=== PATIENT | female | born 1995 | race Caucasian/White ===

== ENCOUNTER 2023-08-13 23:11 | Emergency (ER) | payer OTHER, SELFPAY ==
--- NOTE | 2023-08-13 23:22 | ED_ITS ---
HPI - Nausea/Vomiting/Diarrhea General Chief complaint: Nausea/Vomiting/Diarrhea Stated complaint: n v d Time Seen by Provider: 08/13/23 23:21 Source: patient and family Mode of arrival: EMS Limitations: no limitations History of Present Illness HPI Narrative: Patient otherwise healthy had left over chicken salad last night and earlier today within 4 hours of eating salad patient started having explosive vomiting and diarrhea had more than 10 times in 3 hours was feeling very weak on arrival unable to stand up and walk exhausted no cold symptoms no significant abdominal pain no other family member sick at home no fever or chills stool was watery Related Data Previous Rx's Medication Instructions Recorded loperamide 2 mg tablet (Imodium 2 mg PO Q6H PRN loose stool #10 08/14/23 A-D) tabs ondansetron 4 mg disintegrating 4 mg PO Q6-8H PRN nausea and 08/14/23 tablet vomiting #10 tabs Allergies Allergy/AdvReac Type Severity Reaction Status Date / Time sulfur [From [id number]] Allergy Unknown RASH Verified 08/14/23 00:01 Review of Systems 2 Review of Systems: Yes all other systems are reviewed and are negative Physical Exam 2 Vital Signs: Vital Signs: Last Vital Signs Temp 98.5 F 08/14/23 00:00 Pulse 94 08/14/23 00:00 Resp 16 08/14/23 00:00 BP 98/62 08/14/23 00:00 Pulse Ox 98 08/14/23 00:00 O2 Del Method Room Air 08/14/23 00:00 BMI result Body Mass Index 24.6 Appearance: Alert. Oriented X3. Looks sick Eyes: No pallor or icterus ENT: Pharynx normal. Oral Mucosa dry Neck: Normal inspection. Neck supple. CVS: Normal heart rate and rhythm. Pulses normal. Respiratory: No respiratory distress. Equal air entry bilateral, no wheezing/rales/rhonchi Abdomen: Soft and nontender. Bowel sounds are present, no mass palpable, no CVA tenderness Skin: Skin warm and dry. Normal skin color. Normal skin turgor. Neuro: Oriented X 3. Medications Administered Discontinued Medications Generic Name Dose Route Start Last Admin Trade Name Freq PRN Reason Stop Dose Admin Sodium Chloride 1,000 mls @ 999 mls/hr 08/13/23 23:30 08/14/23 00:34 Ns IV 08/14/23 00:30 Infused .Q1H1M ONE Infusion Sodium Chloride 1,000 mls @ 999 mls/hr 08/13/23 23:30 08/14/23 00:35 Ns IV 08/14/23 00:30 Infused .Q1H1M ONE Infusion Loperamide HCl 4 mg 08/13/23 23:31 08/14/23 00:03 Loperamide Hcl 2 Mg Capsule PO 08/13/23 23:32 4 mg ONCE ONE Administration Ondansetron HCl 4 mg 08/13/23 23:31 08/13/23 23:39 Ondansetron Hcl 4 Mg/2 Ml Vial IVPUSH 08/13/23 23:32 4 mg ONCE ONE Administration Ondansetron HCl 4 mg 08/14/23 01:04 08/14/23 01:07 Ondansetron Hcl 4 Mg/2 Ml Vial IVPUSH 08/14/23 01:05 4 mg ONCE ONE Administration Medical Decision Making Medical Decision Making [facility] Narrative: Patient likely food poisoning from Clostridium perfringens uncooked chicken in salad improved after 2 L of normal saline taking p.o. fluids now will discharge patient home on symptomatic treatment Differential Diagnosis Differential Diagnoses: The differential diagnosis associated with the presentation includes Food poisoning/viral gastroenteritis Lab Data [facility] Lab Attestation statement: I reviewed the patient's lab results. 08/13/23 23:32 08/13/23 23:32 Labs: Lab Results 08/13/23 08/13/23 Range/Units 23:31 23:32 WBC 11.6 H (4.8-10.8) X10*3/uL RBC 5.03 (4.20-5.50) X10*6/uL Hgb 12.7 (12.0-16.0) g/dl Hct 39.5 (37.0-47.0) % MCV 78.5 L (80.0-98.0) fL MCH 25.2 L (27.0-33.0) pg MCHC 32.2 (31.0-35.0) g/dl RDW 12.8 (11.0-16.0) % Plt Count 286 (160-400) X10*3/uL MPV 8.5 L (9.4-12.3) fL Immature Gran % (Auto) 0.2 (0.0-0.4) % Neut % (Auto) 88.8 H (45-73) % Lymph % (Auto) 1.6 L (20-40) % [place] % (Auto) 9.0 (2-11) % Eos % (Auto) 0.2 (0-4) % Baso % (Auto) 0.2 (0-2) % Lymph # (Auto) 0.2 L (1.2-4.9) X10*3/uL [place] # (Auto) 1.0 (0.1-1.2) X10*3/uL Eos # (Auto) 0.0 (0.0-0.4) X10*3/uL Baso # (Auto) 0.0 (0.0-0.2) X10*3/uL Abs Immat Gran (auto) 0.02 (0.00-0.03) X10*3/uL Absolute Neuts (auto) 10.3 H (2.0-8.3) x10*3/uL Absolute Nucleated RBC 0.000 (0.0-0.012) X10*3/uL Nucleated RBC % (auto) 0.0 (0.0-0.2) /100WBC Sodium 137 (135-145) mmol/L Potassium 4.1 (3.3-5.1) mmol/L Chloride 108 (96-108) mmol/L Carbon Dioxide 17 L (22-29) mmol/L Anion Gap 16 (12-20) BUN 17 H (9-16) mg/dL Creatinine 0.76 (0.5-1.4) mg/dL Estim Creat Clear Calc 91.0 Estimated GFR > 60 Random Glucose 147 H (60-115) mg/dL Calcium 9.0 (8.4-10.2) mg/dL Magnesium 1.6 (1.6-2.6) mg/dL Total Bilirubin 1.4 H (0.0-1.0) mg/dL AST 16 (5-31) U/L ALT 9 (0-31) U/L Alkaline Phosphatase 51 (39-117) U/L Total Protein 7.4 (6.5-8.0) g/dL Albumin 4.3 (3.5-5.0) g/dL Beta HCG, Quant < 2 mIU/mL Influenza Type A (PCR) NEGATIVE (Negative) Influenza Type B (PCR) NEGATIVE (Negative) RSV RNA Qual (PCR) NEGATIVE (Negative) SARS-CoV-2 RNA (RT-PCR) NEGATIVE (Negative) Discharge Plan Discharge Clinical Impression: Food poisoning Patient Disposition: Home, Self-Care Instructions: Food Poisoning (ED) Additional Instructions: Drink plenty of fluids Likely you have food poisoning from salad with chicken you had Nausea medication intake Imodium if only have severe diarrhea as prescribed Prescriptions: New loperamide [Imodium A-D] 2 mg tablet 2 mg PO Q6H PRN (Reason: loose stool) Qty: 10 0RF ondansetron 4 mg tablet,disintegrating 4 mg PO Q6-8H PRN (Reason: nausea and vomiting) Qty: 10 0RF Stand Alone Forms: Work/School Release
[2023-08-13 23:35] LABS: MANUAL DIFF FLAG NO
[2023-08-13] MEDS: 0.9 % Sodium Chloride 1,000 ML 999 ML IV ×2 (23:35)
[2023-08-13 23:36] LABS: Basophils Percent Auto 0.2 % (0-2); Eosinophils Percent Auto 0.2 % (0-4); Hematocrit 39.5 % (37.0-47.0); Hemoglobin 12.7 g/dl (12.0-16.0); Imm Gran Abs Auto 0.02 X10*3/uL (0.00-0.03); Imm Gran Pct Auto 0.2 % (0.0-0.4); Lymphocytes Absolute Auto 0.2 X10*3/uL (1.2-4.9); Lymphocytes Percent Auto 1.6 % (20-40); Mean Corpuscular HGB Conc 32.2 g/dl (31.0-35.0); Mean Corpuscular Hemoglobin 25.2 pg (27.0-33.0); Mean Corpuscular Volume 78.5 fL (80.0-98.0); Mean Platelet Volume 8.5 fL (9.4-12.3); Neutrophils Absolute Auto 10.3 x10*3/uL (2.0-8.3); Neutrophils Percent Auto 88.8 % (45-73); Platelet Count 286 X10*3/uL (160-400); Red Blood Count 5.03 X10*6/uL (4.20-5.50); Red Cell Distribution Width 12.8 % (11.0-16.0); White Blood Count 11.6 X10*3/uL (4.8-10.8)
[2023-08-13] MEDS: ondansetron HCL 4 MG/2 ML VIAL IVPUSH (23:39)
[2023-08-13 23:41] VITALS: BP 107/66; BP 98/62; PULSE 75; PULSE 94; RESP 16; TEMP 36.9; O2SAT 100; O2SAT 98; BMI 24.6
[2023-08-14] VITALS: BP 98/62; PULSE 94; RESP 16; TEMP 36.9; O2SAT 98
[2023-08-14 00:01] LABS: Alanine Aminotransferase 9 U/L (0-31); Albumin Level 4.3 g/dL (3.5-5.0); Alkaline Phosphatase 51 U/L (39-117); Anion Gap 16 (12-20); Aspartate Amino Transferase 16 U/L (5-31); Bilirubin Total 1.4 mg/dL (0.0-1.0); Blood Urea Nitrogen 17 mg/dL (9-16); Carbon Dioxide 17 mmol/L (22-29); Chloride 108 mmol/L (96-108); Estimated Glomerular Filt Rate > 60; Glucose Random 147 mg/dL (60-115); Magnesium 1.6 mg/dL (1.6-2.6); Potassium 4.1 mmol/L (3.3-5.1); Sodium 137 mmol/L (135-145); Total Protein 7.4 g/dL (6.5-8.0)
[2023-08-14] MEDS: Loperamide HCl 2 MG CAPSULE 4 MG PO (00:03)
[2023-08-14 00:08] LABS: HCG Quantitative < 2 mIU/mL
[2023-08-14 00:13] LABS: Influenza A PCR NEGATIVE (Negative); Influenza B PCR NEGATIVE (Negative); Resp Syncy Virus RNA Qual PCR NEGATIVE (Negative); SARS COV2 PCR INHOUSE NEGATIVE (Negative)
--- NOTE | 2023-08-14 00:39 | PC.NURSE ---
Pt is alert and oriented, has much more energy than when she first arrived. Pt states she is feeling better, per Dr Franks, pt will be PO challenged. Crackers and water given.
[2023-08-14] MEDS: ondansetron HCL 4 MG/2 ML VIAL IVPUSH (01:07)
== END 2023-08-14 01:12 | disposition home or self-care (01) ==
LOC: HO.ED 08-14 01:07
PROVIDERS: Physician Assistant Medical; Emergency Provider Internal Medicine
DX: A05.9 Bacterial foodborne intoxication, unspecified (principal); R11.10 Vomiting, unspecified; R19.7 Diarrhea, unspecified; Z20.822 Contact with and (suspected) exposure to COVID-19; Z20.828 Contact with and (suspected) exposure to other viral communicable diseases
CPT/HCPCS: 0241U; 80053; 83735; 84702; 85025; 96361; 96374; 96376; 99284; 99285; J2405